=== PATIENT | female | born 1940 | race Caucasian/White ===

== ENCOUNTER 2016-10-24 08:49 | Emergency (ER) | payer MEDICARE, BC ==
[~2016-10-24] VITALS: Ht 172.7 cm; Wt 54.5 kg
[~2016-10-24 08:49] MED LIST: AMIODARONE HCL400 MG PO; ASPI81CT18 PO; ASPIRIN 81M81 MG/TA2 PO; BENICAR 20MG TA20 MG PO; CALCIUM 600/VIT1 CAP; CALCIUM 600600 MG; CALCIUM 600600 MG PO; CALTRATE-600 W600 MG PO; CARAFATE 1GM1 G PO; CEFTIN500 MG PO; CELEXA 20MG20 MG/TAB PO; CELEXA20 MG PO; CENTRUM SILVER1 TA1 PO; CITRACAL + D CA1 TAB PO; COLON HEALTH PO; COREG12.5 MG PO; COUMADIN 1MG1 MG/TAB PO; COUMADIN 22.5 MG/TAB PO; COUMADIN 3MG3 MG/TAB PO; DARVOCET N PO; DUO-KAPS1 CAP PO; FISH OIL1 IU PO; FISH OIL500 MG PO; GENTAMICIN I40 MG/ML; GI COCKTAIL SUSP1 M1 PO; K-LOR CON; KLONOPIN 0.5MG0.5 MG PO; LASIX20 MG PO; LEXAPRO 5MG5 MG PO; LOW DOSE ASPIRI81 MG PO; MAGESTROL; METOPROLOL SUCC25 M1 PO; MIRTAZAPINE7.5 MG PO; MULTI VITAMINS1 TAB; MULTI VITAMINS1 TAB PO; MULTIPLE VITAMI1 CAP PO; MVI; NEXIUM 40MG40 MG PO; NITROSTAT0.4 MG/TAB SL; PRAVACHOL 20MG20 MG PO; PRAVACHOL10 MG PO; PREVACID 15MG15 M1 PO; PRILOTC PO; RIFADIN300 MG PO; ULTRAM 50MG TAB50 MG PO; VANCOMYCIN 11 G/VIA1 IV; VENTOLIN0.09 MG IH; VITAMIN D1000 IU; VITAMIN D1000 IU PO; VITAMIN D5000 IU PO; mvi
[2016-10-24 08:53] VITALS: TEMP 97.9
[2016-10-24 10:06] LABS: BASO % 0.8 % (0.0-2.0); EOS % 0.4 % (0-4.0); GRAN # 3.5 (1.4-6.5); GRAN % 68.7 % (42.2-75.2); HEMATOCRIT 38.5 % (37.0-47.0); HEMOGLOBIN 13.2 g/dl (12.5-16.0); LYMPH # 1.1 (1.2-3.4); LYMPH % 21.9 % (20.0-51.0); MEAN CELL VOLUME 90 fl (80.0-100.0); MEAN CORPUSCULAR HEMOGLOBIN 31 pg (27.0-31.0); MEAN CORPUSCULAR HGB CONC 34 g/dl (33.0-37.0); MONO # 0.4 (0.1-0.6); MONO % 7.8 % (1.7-9.3); PLATELET COUNT 117 K/mm3 (130-400); RED BLOOD COUNT 4.27 M/mm3 (4.10-5.30); REDCELL DISTRIBUTION WIDTH-CV 12.6 % (11.5-14.5); WHITE BLOOD COUNT 5.2 K/mm3 (4.8-10.8)
[2016-10-24 10:19] LABS: ADJUSTED CALCIUM 9.9 mg/dL (8.4-10.2); ALANINE AMINOTRANSFERASE 23 U/L (9-52); ALBUMIN 4.2 gm/dL (3.5-5.0); ALKALINE PHOSPHATASE 34 U/L (50-136); ANION GAP 10 mmol/L (7-16); BILIRUBIN,TOTAL 2.1 mg/dL (0.0-1.0); BLOOD UREA NITROGEN 17 mg/dL (7-17); CALCIUM 10.1 mg/dL (8.4-10.2); CARBON DIOXIDE 25 mmol/L (22-30); CHLORIDE 103 mmol/L (98-107); GLUCOSE 114 mg/dL (74-106); LIPASE 32 U/L (23-300); POTASSIUM 3.9 mmol/L (3.4-5.0); SODIUM 138 mmol/L (137-145); TOTAL PROTEIN 7.2 gm/dL (6.4-8.2)
[2016-10-24 10:21] LABS: C-REACTIVE PROTEIN < 0.5 mg/dL (0.0-0.9)
[2016-10-24 10:25] LABS: B-TYPE NATRIURETIC PEPTIDE 522 pg/mL (0-450)
[2016-10-24 10:30] LABS: TROPONIN-I < 0.012 ng/mL (0.000-0.034)
[2016-10-24 11:09] LABS: INR 2.5 (0.8-3.0); PROTHROMBIN TIME 28.9 SECONDS (9.7-12.8)
[2016-10-24 11:12] LABS: PARTIAL THROMBOPLASTIN TIME 42.2 SECONDS (26.0-37.0)
[2016-10-24] MEDS ORDERED: FLAGYL500 MG PO (12:10)
[2016-10-24 12:19] LABS: PH 8 (5-8); SQUAMOUS EPITHELIAL None Seen /hpf; URINE APPEARANCE Clear; URINE BACTERIA None Seen /hpf; URINE BILIRUBIN Negative (NEGATIVE); URINE BLOOD 1+ (NEGATIVE); URINE COLOR Colorless; URINE GLUCOSE Negative (NEGATIVE); URINE KETONE Negative (NEGATIVE); URINE RBC 0-2 /hpf; URINE UROBILINOGEN Negative (NEGATIVE)
[2016-10-24] MEDS ORDERED: AMOXICILLIN 8751 TAB PO (12:25)
[2016-10-24 13:33] VITALS: BP 139/75; PULSE 70
== END 2016-10-24 13:43 | disposition home or self-care (01) ==
LOC: COL.ER 08:49
PROVIDERS: Emergency Medicine
DX: K52.9 Noninfective gastroenteritis and colitis, unspecified (principal); Z86.79 Personal history of other diseases of the circulatory system; Z79.01 Long term (current) use of anticoagulants; Z95.1 Presence of aortocoronary bypass graft; Z95.4 Presence of other heart-valve replacement; Z90.49 Acquired absence of other specified parts of digestive tract
CPT/HCPCS: J7030; Q9967

== ENCOUNTER 2016-10-31 09:12 | Emergency (ER) | payer MEDICARE, BC ==
[~2016-10-31] VITALS: Ht 170.2 cm; Wt 58.2 kg
[~2016-10-31 09:12] MED LIST changes: +AMOXICILLIN 8751 TAB PO; +FLAGYL500 MG PO
[2016-10-31 09:20] VITALS: BP 109/65; TEMP 98.3
[2016-10-31 12:14] LABS: ADJUSTED CALCIUM 9.6 mg/dL (8.4-10.2); ALBUMIN 4.4 gm/dL (3.5-5.0); BILIRUBIN,TOTAL 1.9 mg/dL (0.0-1.0); CALCIUM 9.9 mg/dL (8.4-10.2); CREATININE, serum 0.82 mg/dL (0.52-1.25); POTASSIUM 3.8 mmol/L (3.4-5.0); TOTAL PROTEIN 7.2 gm/dL (6.4-8.2)
[2016-10-31 12:20] LABS: BASO % 0.6 % (0.0-2.0); EOS % 0.4 % (0-4.0); GRAN # 3.6 (1.4-6.5); GRAN % 69.7 % (42.2-75.2); HEMATOCRIT 38.7 % (37.0-47.0); HEMOGLOBIN 13.3 g/dl (12.5-16.0); LYMPH # 1.1 (1.2-3.4); LYMPH % 20.8 % (20.0-51.0); MEAN CELL VOLUME 90 fl (80.0-100.0); MEAN CORPUSCULAR HEMOGLOBIN 31 pg (27.0-31.0); MEAN CORPUSCULAR HGB CONC 34 g/dl (33.0-37.0); MEAN PLATELET VOLUME 11.2 fl (7.4-10.4); MONO # 0.4 (0.1-0.6); MONO % 8.1 % (1.7-9.3); PLATELET COUNT 136 K/mm3 (130-400); RED BLOOD COUNT 4.31 M/mm3 (4.10-5.30); REDCELL DISTRIBUTION WIDTH-CV 12.7 % (11.5-14.5); WHITE BLOOD COUNT 5.2 K/mm3 (4.8-10.8)
[2016-10-31] MEDS ORDERED: PERCOCET 325 MG1 TA2 PO (14:10)
[2016-10-31 14:30] VITALS: PULSE 85
== END 2016-10-31 14:31 | disposition home or self-care (01) ==
LOC: COL.ER 09:12
PROVIDERS: Physician Assistant Medical
DX: R10.13 Epigastric pain (principal); G89.29 Other chronic pain; L90.5 Scar conditions and fibrosis of skin; I25.10 Atherosclerotic heart disease of native coronary artery without angina pectoris; Z95.1 Presence of aortocoronary bypass graft; Z95.2 Presence of prosthetic heart valve; Z79.01 Long term (current) use of anticoagulants; Z87.891 Personal history of nicotine dependence

== ENCOUNTER 2016-11-18 09:24 | Day surgery (SDC) | payer MEDICARE, BC ==
[~2016-11-18] VITALS: Ht 167.6 cm; Wt 55.8 kg
[~2016-11-18 09:24] MED LIST changes: +PERCOCET 325 MG1 TA2 PO
[2016-11-18 10:19] VITALS: BP 114/82; PULSE 100; TEMP 97.8
[2016-11-18] MEDS ORDERED: CALCIUM CARBON650 M2 PO ×2 (10:35→10:36)
[2016-11-18] MEDS ORDERED: CALCIUM-MAGNES1 EAC1 PO (10:36)
[2016-11-18] MEDS ORDERED: VITAMIN D3400 I1 PO (10:37)
[2016-11-18] MEDS ORDERED: COUMADIN 2MG2 MG/TAB PO (10:47)
[2016-11-18 12:05] VITALS: BP 120/78; PULSE 90; TEMP 97.8
[2016-11-18 12:20] VITALS: BP 120/78; PULSE 75
[2016-11-18 12:37] VITALS: BP 115/67; PULSE 87
[2016-11-18 13:00] VITALS: BP 128/78; PULSE 76
[2016-11-18 13:06] VITALS: BP 94/50; PULSE 64
== END 2016-11-18 13:08 | disposition home or self-care (01) ==
LOC: SDCO 09:24
DX: K22.70 Barrett's esophagus without dysplasia (principal); K57.30 Diverticulosis of large intestine without perforation or abscess without bleeding; K21.9 Gastro-esophageal reflux disease without esophagitis; K30 Functional dyspepsia; R07.89 Other chest pain; I38 Endocarditis, valve unspecified; I10 Essential (primary) hypertension; I25.10 Atherosclerotic heart disease of native coronary artery without angina pectoris; I25.2 Old myocardial infarction; G47.33 Obstructive sleep apnea (adult) (pediatric); F32.9 Major depressive disorder, single episode, unspecified; Z95.0 Presence of cardiac pacemaker; Z95.1 Presence of aortocoronary bypass graft; Z90.49 Acquired absence of other specified parts of digestive tract; Z86.010 Personal history of colon polyps; Z85.3 Personal history of malignant neoplasm of breast
CPT/HCPCS: OP; J2250; J2704; J3010; J7120

== ENCOUNTER → 2016-11-29 | Outpatient (CLI) | payer MEDICARE, BC ==
[~2016-11-29] MED LIST changes: +CALCIUM CARBON650 M2 PO; +CALCIUM-MAGNES1 EAC1 PO; +COUMADIN 2MG2 MG/TAB PO; +NORCO 325 MG-51 TAB PO; +VITAMIN D3400 I1 PO
== END ==
LOC: MHCPAIN 08:00
DX: G89.29 Other chronic pain (principal); M79.1 Myalgia; R10.9 Unspecified abdominal pain; Z87.891 Personal history of nicotine dependence; Z79.01 Long term (current) use of anticoagulants
CPT/HCPCS: G0463

== ENCOUNTER 2016-12-03 16:49 | Emergency (ER) | payer MEDICARE, BC ==
[~2016-12-03] VITALS: Ht 170.2 cm; Wt 54.5 kg
[~2016-12-03 16:49] MED LIST changes: -NORCO 325 MG-51 TAB PO
[2016-12-03 16:51] VITALS: BP 156/85; TEMP 97.9
[2016-12-03] MEDS ORDERED: NORCO 325 MG-51 TAB PO (17:23)
[2016-12-03 17:35] VITALS: PULSE 74
== END 2016-12-03 17:36 | disposition home or self-care (01) ==
LOC: COL.ER 16:49
DX: G89.29 Other chronic pain (principal); R10.30 Lower abdominal pain, unspecified; I25.10 Atherosclerotic heart disease of native coronary artery without angina pectoris; Z85.3 Personal history of malignant neoplasm of breast; Z87.891 Personal history of nicotine dependence; Z79.01 Long term (current) use of anticoagulants; Z95.1 Presence of aortocoronary bypass graft; Z95.0 Presence of cardiac pacemaker; Z95.810 Presence of automatic (implantable) cardiac defibrillator; Z95.4 Presence of other heart-valve replacement; Z98.51 Tubal ligation status

== ENCOUNTER 2017-04-14 13:59 | Emergency (ER) | payer MEDICARE, BC ==
[~2017-04-14] VITALS: Ht 170.2 cm; Wt 63.6 kg
[~2017-04-14 13:59] MED LIST changes: +NORCO 325 MG-51 TAB PO
[2017-04-14 14:04] VITALS: BP 165/105; PULSE 96; TEMP 97.7
[2017-04-14 14:48] LABS: COLLECTION METHOD CLEAN CATCH
[2017-04-14 14:59] LABS: PH 7 (5-8); SQUAMOUS EPITHELIAL None Seen /hpf; URINE APPEARANCE Clear; URINE BACTERIA Rare /hpf; URINE BILIRUBIN Negative (NEGATIVE); URINE BLOOD 2+ (NEGATIVE); URINE COLOR Yellow; URINE GLUCOSE Negative (NEGATIVE); URINE KETONE Negative (NEGATIVE); URINE LEUKOCYTE ESTERASE 2+ (NEGATIVE); URINE NITRATE Negative (NEGATIVE); URINE PROTEIN(semi-quant) Negative (NEGATIVE); URINE RBC 0-2 /hpf; URINE UROBILINOGEN Negative (NEGATIVE)
[2017-04-14 15:02] LABS: TRICYCLIC ANTIDEPRESS URINE NEGATIVE
[2017-04-14 15:21] LABS: BASO % 0.6 % (0.0-2.0); EOS % 0.3 % (0-4.0); GRAN # 4.5 (1.4-6.5); GRAN % 67.9 % (42.2-75.2); HEMATOCRIT 41.8 % (37.0-47.0); HEMOGLOBIN 14.3 g/dl (12.5-16.0); LYMPH # 1.7 (1.2-3.4); LYMPH % 24.8 % (20.0-51.0); MEAN CELL VOLUME 93 fl (80.0-100.0); MEAN CORPUSCULAR HEMOGLOBIN 32 pg (27.0-31.0); MEAN CORPUSCULAR HGB CONC 34 g/dl (33.0-37.0); MEAN PLATELET VOLUME 11.1 fl (7.4-10.4); MONO # 0.4 (0.1-0.6); MONO % 6.1 % (1.7-9.3); PLATELET COUNT 138 K/mm3 (130-400); RED BLOOD COUNT 4.52 M/mm3 (4.10-5.30); REDCELL DISTRIBUTION WIDTH-CV 12.6 % (11.5-14.5)
[2017-04-14 15:30] LABS: ACETAMINOPHEN < 10 ug/mL (10-30); ALANINE AMINOTRANSFERASE 34 U/L (9-52); ALBUMIN 4.8 gm/dL (3.5-5.0); ALCOHOL(ethanol),MEDICAL < 10 mg/dL; ALKALINE PHOSPHATASE 40 U/L (50-136); ANION GAP 9 mmol/L (7-16); AST,SGOT 27 U/L (15-37); BILIRUBIN,TOTAL 1.8 mg/dL (0.0-1.0); BLOOD UREA NITROGEN 19 mg/dL (7-17); CALCIUM 10.7 mg/dL (8.4-10.2); CARBON DIOXIDE 28 mmol/L (22-30); CHLORIDE 103 mmol/L (98-107); GLUCOSE 105 mg/dL (74-106); POTASSIUM 3.9 mmol/L (3.4-5.0); SALICYLATE < 1.0 mg/dL; SODIUM 140 mmol/L (137-145); TOTAL PROTEIN 7.5 gm/dL (6.4-8.2)
[2017-04-14] MEDS ORDERED: EFFEXOR XR75 MG/CAP PO (15:45)
[2017-04-14] MEDS ORDERED: CIPRO 500MG TA500 MG PO (15:45)
== END 2017-04-14 16:16 | disposition home or self-care (01) ==
LOC: COL.ER 13:59
PROVIDERS: Emergency Medicine
DX: F32.9 Major depressive disorder, single episode, unspecified (principal); N39.0 Urinary tract infection, site not specified; I25.10 Atherosclerotic heart disease of native coronary artery without angina pectoris; Z87.891 Personal history of nicotine dependence; Z79.01 Long term (current) use of anticoagulants

== ENCOUNTER 2017-07-12 08:08 | Emergency (ER) | payer MEDICARE, BC ==
[~2017-07-12] VITALS: Ht 170.2 cm; Wt 58.6 kg
[~2017-07-12 08:08] MED LIST changes: +CIPRO 500MG TA500 MG PO; +EFFEXOR XR75 MG/CAP PO
[2017-07-12 08:11] VITALS: BP 140/82; TEMP 97.6
[2017-07-12 08:50] LABS: BASO % 0.2 % (0.0-2.0); EOS % 0.2 % (0-4.0); GRAN # 3.4 (1.4-6.5); GRAN % 67.5 % (42.2-75.2); HEMATOCRIT 40.7 % (37.0-47.0); HEMOGLOBIN 13.9 g/dl (12.5-16.0); LYMPH # 1.2 (1.2-3.4); LYMPH % 23.5 % (20.0-51.0); MEAN CELL VOLUME 92 fl (80.0-100.0); MEAN CORPUSCULAR HEMOGLOBIN 31 pg (27.0-31.0); MEAN CORPUSCULAR HGB CONC 34 g/dl (33.0-37.0); MEAN PLATELET VOLUME 10.8 fl (7.4-10.4); MONO # 0.4 (0.1-0.6); MONO % 8.2 % (1.7-9.3); PLATELET COUNT 114 K/mm3 (130-400); RED BLOOD COUNT 4.43 M/mm3 (4.10-5.30); REDCELL DISTRIBUTION WIDTH-CV 12.6 % (11.5-14.5)
[2017-07-12 08:55] LABS: INR 2.3 (0.8-3.0); PROTHROMBIN TIME 27.1 SECONDS (9.7-12.8)
[2017-07-12 09:00] LABS: ALBUMIN 4.1 gm/dL (3.5-5.0); BILIRUBIN,TOTAL 1.5 mg/dL (0.0-1.0); CREATININE, serum 1.02 mg/dL (0.52-1.25); POTASSIUM 3.9 mmol/L (3.4-5.0)
[2017-07-12 09:10] LABS: COLLECTION METHOD CLEAN CATCH
[2017-07-12 09:20] LABS: BUDDING YEAST Present /hpf; MUCOUS Present /lpf; PH 7 (5-8); SQUAMOUS EPITHELIAL None Seen /hpf; URINE APPEARANCE Cloudy; URINE BACTERIA Many /hpf; URINE BILIRUBIN Negative (NEGATIVE); URINE BLOOD Negative (NEGATIVE); URINE COLOR Yellow; URINE GLUCOSE Negative (NEGATIVE); URINE KETONE Negative (NEGATIVE); URINE LEUKOCYTE ESTERASE 2+ (NEGATIVE); URINE NITRATE Negative (NEGATIVE); URINE PROTEIN(semi-quant) 1+ (NEGATIVE); URINE UROBILINOGEN Negative (NEGATIVE)
[2017-07-12] MEDS ORDERED: CIPRO 500MG TA500 MG PO (09:44)
[2017-07-12] MEDS ORDERED: LIDODERM 5% PATC1 EA TP (09:44)
[2017-07-12 09:59] VITALS: PULSE 82
== END 2017-07-12 10:01 | disposition home or self-care (01) ==
LOC: COL.ER 08:08
PROVIDERS: Physician Assistant
DX: N39.0 Urinary tract infection, site not specified (principal); G89.18 Other acute postprocedural pain; R10.11 Right upper quadrant pain; K21.9 Gastro-esophageal reflux disease without esophagitis; I25.10 Atherosclerotic heart disease of native coronary artery without angina pectoris; F32.9 Major depressive disorder, single episode, unspecified; Z95.4 Presence of other heart-valve replacement; Z79.01 Long term (current) use of anticoagulants

== ENCOUNTER 2017-08-12 13:54 | Emergency (ER) | payer MEDICARE, BC ==
[~2017-08-12] VITALS: Ht 167.6 cm; Wt 59.1 kg
[~2017-08-12 13:54] MED LIST changes: +LIDODERM 5% PATC1 EA TP; +OMNICEF 300MG300 MG PO
[2017-08-12 13:58] VITALS: TEMP 97.7
[2017-08-12] MEDS ORDERED: FISH OIL 1000MG1 CAP PO (15:26)
[2017-08-12 15:43] LABS: COLLECTION METHOD CLEAN CATCH
[2017-08-12 15:57] LABS: PH 6 (5-8); SQUAMOUS EPITHELIAL 0-2 /hpf; URINE APPEARANCE Hazy; URINE BACTERIA Many /hpf; URINE BILIRUBIN Negative (NEGATIVE); URINE BLOOD 2+ (NEGATIVE); URINE COLOR Yellow; URINE GLUCOSE Negative (NEGATIVE); URINE KETONE Negative (NEGATIVE); URINE LEUKOCYTE ESTERASE 3+ (NEGATIVE); URINE NITRATE Negative (NEGATIVE); URINE PROTEIN(semi-quant) Negative (NEGATIVE); URINE UROBILINOGEN Negative (NEGATIVE)
[2017-08-12 16:06] LABS: BASO % 0.1 % (0.0-2.0); EOS % 0.1 % (0-4.0); GRAN # 6.2 (1.4-6.5); HEMOGLOBIN 14.8 g/dl (12.5-16.0); INR 2.2 (0.8-3.0); LYMPH # 1.9 (1.2-3.4); LYMPH % 21.8 % (20.0-51.0); MEAN CELL VOLUME 91 fl (80.0-100.0); MEAN CORPUSCULAR HEMOGLOBIN 31 pg (27.0-31.0); MEAN CORPUSCULAR HGB CONC 34 g/dl (33.0-37.0); MONO # 0.7 (0.1-0.6); MONO % 7.7 % (1.7-9.3); PLATELET COUNT 147 K/mm3 (130-400); PROTHROMBIN TIME 25.4 SECONDS (9.7-12.8); RED BLOOD COUNT 4.74 M/mm3 (4.10-5.30); REDCELL DISTRIBUTION WIDTH-CV 12.8 % (11.5-14.5)
[2017-08-12 16:16] LABS: ALANINE AMINOTRANSFERASE 30 U/L (9-52); ALBUMIN 4.8 gm/dL (3.5-5.0); ALKALINE PHOSPHATASE 49 U/L (50-136); ANION GAP 13 mmol/L (7-16); AST,SGOT 32 U/L (15-37); BILIRUBIN,TOTAL 1.7 mg/dL (0.0-1.0); BLOOD UREA NITROGEN 25 mg/dL (7-17); C-REACTIVE PROTEIN < 0.5 mg/dL (0.0-0.9); CALCIUM 11.3 mg/dL (8.4-10.2); CARBON DIOXIDE 27 mmol/L (22-30); CHLORIDE 101 mmol/L (98-107); CREATININE, serum 1.12 mg/dL (0.52-1.25); GLUCOSE 113 mg/dL (74-106); LIPASE 65 U/L (23-300); POTASSIUM 3.3 mmol/L (3.4-5.0); SODIUM 142 mmol/L (137-145); TOTAL PROTEIN 8.7 gm/dL (6.4-8.2)
[2017-08-12] MEDS ORDERED: LIDODERM 5% PATC1 EA TP (16:56)
[2017-08-12 17:29] VITALS: BP 131/89; PULSE 92
== END 2017-08-12 17:44 | disposition home or self-care (01) ==
LOC: COL.ER 13:54
PROVIDERS: Emergency Medicine
DX: N39.0 Urinary tract infection, site not specified (principal); F32.9 Major depressive disorder, single episode, unspecified; K21.9 Gastro-esophageal reflux disease without esophagitis; I48.91 Unspecified atrial fibrillation; I25.10 Atherosclerotic heart disease of native coronary artery without angina pectoris; Z95.0 Presence of cardiac pacemaker; Z79.01 Long term (current) use of anticoagulants; Z90.49 Acquired absence of other specified parts of digestive tract

== ENCOUNTER 2017-10-21 18:14 | Emergency (ER) | payer MEDICARE, BC ==
[~2017-10-21] VITALS: Ht 170.2 cm; Wt 55.9 kg
[~2017-10-21 18:14] MED LIST changes: +FISH OIL 1000MG1 CAP PO
[2017-10-21 18:16] VITALS: TEMP 97.4
[2017-10-21 19:10] LABS: BASO % 0.6 % (0.0-2.0); EOS % 0.4 % (0-4.0); GRAN # 3.4 (1.4-6.5); HEMOGLOBIN 12.2 g/dl (12.5-16.0); LYMPH # 1.4 (1.2-3.4); MEAN CELL VOLUME 90 fl (80.0-100.0); MEAN CORPUSCULAR HEMOGLOBIN 32 pg (27.0-31.0); MEAN CORPUSCULAR HGB CONC 35 g/dl (33.0-37.0); MEAN PLATELET VOLUME 11.5 fl (7.4-10.4); MONO # 0.4 (0.1-0.6); MONO % 7.8 % (1.7-9.3); PLATELET COUNT 111 K/mm3 (130-400); RED BLOOD COUNT 3.85 M/mm3 (4.10-5.30); REDCELL DISTRIBUTION WIDTH-CV 12.5 % (11.5-14.5)
[2017-10-21 19:13] LABS: INR 2.8 (0.8-3.0); PROTHROMBIN TIME 31.3 SECONDS (9.7-12.8)
[2017-10-21 19:15] LABS: ANION GAP 7 mmol/L (7-16); BLOOD UREA NITROGEN 17 mg/dL (7-17); CALCIUM 9.9 mg/dL (8.4-10.2); CARBON DIOXIDE 26 mmol/L (22-30); CHLORIDE 104 mmol/L (98-107); CREATININE, serum 0.91 mg/dL (0.52-1.25); GLUCOSE 112 mg/dL (74-106); HEMATOCRIT 34.7 % (37.0-47.0); POTASSIUM 3.5 mmol/L (3.4-5.0); SODIUM 137 mmol/L (137-145)
[2017-10-21 19:27] LABS: TROPONIN-I < 0.012 ng/mL (0.000-0.034)
[2017-10-21] MEDS ORDERED: LIDODERM 5% PATC1 EA TP (19:55)
[2017-10-21 20:10] VITALS: BP 160/81; PULSE 75
== END 2017-10-21 20:10 | disposition home or self-care (01) ==
LOC: COL.ER 18:14
PROVIDERS: Emergency Medicine
DX: R07.9 Chest pain, unspecified (principal); Z95.0 Presence of cardiac pacemaker; Z90.12 Acquired absence of left breast and nipple; Z79.01 Long term (current) use of anticoagulants

== ENCOUNTER → 2017-12-01 | Outpatient (CLI) | payer MEDICARE, BC ==
[~2017-12-01] MED LIST changes: +CLEOCIN HC150 MG/CAP PO; +VITAMIN D31000 I1 PO; +[UNRECOGNIZED DRUG - OTHER] PO
== END ==
LOC: BHSO 12:58
DX: F33.1 Major depressive disorder, recurrent, moderate (principal)

== ENCOUNTER 2017-12-17 08:11 | Observation (INO) | payer MEDICARE, BC ==
[~2017-12-17] VITALS: Ht 167.6 cm; Wt 54.1 kg
[2017-12-17] MEDS ORDERED: ZOLOFT 50MG50 MG PO (08:31)
[2017-12-17 08:36] LABS: BASO % 0.4 % (0.0-2.0); EOS % 0.4 % (0-4.0); GRAN # 4.8 (1.4-6.5); GRAN % 68.9 % (42.2-75.2); HEMATOCRIT 41.7 % (37.0-47.0); HEMOGLOBIN 14.3 g/dl (12.5-16.0); LYMPH # 1.6 (1.2-3.4); LYMPH % 22.6 % (20.0-51.0); MEAN CELL VOLUME 91 fl (80.0-100.0); MEAN CORPUSCULAR HEMOGLOBIN 31 pg (27.0-31.0); MEAN CORPUSCULAR HGB CONC 34 g/dl (33.0-37.0); MONO # 0.5 (0.1-0.6); MONO % 7.4 % (1.7-9.3); PLATELET COUNT 141 K/mm3 (130-400); RED BLOOD COUNT 4.58 M/mm3 (4.10-5.30); REDCELL DISTRIBUTION WIDTH-CV 12.6 % (11.5-14.5)
[2017-12-17 08:40] LABS: INR 2.2 (0.8-3.0); PROTHROMBIN TIME 25.4 SECONDS (9.7-12.8)
[2017-12-17 08:45] LABS: ALBUMIN 4.4 gm/dL (3.5-5.0); BILIRUBIN,TOTAL 2.5 mg/dL (0.0-1.0); CREATININE, serum 0.95 mg/dL (0.52-1.25); POTASSIUM 3.5 mmol/L (3.4-5.0); TOTAL PROTEIN 7.4 gm/dL (6.4-8.2)
[2017-12-17 08:56] LABS: TROPONIN-I 0.026 ng/mL (0.000-0.034)
[2017-12-17] MEDS ORDERED: COUMADIN 3MG3 MG/TAB PO (10:08)
[2017-12-17 10:55] VITALS: BP 147/74; PULSE 71; TEMP 97.5
[2017-12-17 15:35] VITALS: BP 145/81; PULSE 70; TEMP 97.9
[2017-12-17 19:33] VITALS: BP 148/81; PULSE 79; TEMP 97.7
[2017-12-17 23:50] VITALS: BP 131/71; PULSE 70; TEMP 98.2
[2017-12-18 03:36] VITALS: BP 119/63; PULSE 72; TEMP 98.3
[2017-12-18 07:28] VITALS: BP 128/68; PULSE 60; TEMP 98.2
[2017-12-18 07:38] LABS: BASO % 0.5 % (0.0-2.0); EOS # 0.1 (0.0-0.7); GRAN # 3.9 (1.4-6.5); GRAN % 64.6 % (42.2-75.2); HEMOGLOBIN 13.9 g/dl (12.5-16.0); LYMPH # 1.6 (1.2-3.4); LYMPH % 26.5 % (20.0-51.0); MEAN CELL VOLUME 89 fl (80.0-100.0); MEAN CORPUSCULAR HEMOGLOBIN 32 pg (27.0-31.0); MEAN CORPUSCULAR HGB CONC 36 g/dl (33.0-37.0); MEAN PLATELET VOLUME 11.9 fl (7.4-10.4); MONO # 0.4 (0.1-0.6); MONO % 7.2 % (1.7-9.3); PLATELET COUNT 134 K/mm3 (130-400); RED BLOOD COUNT 4.37 M/mm3 (4.10-5.30); REDCELL DISTRIBUTION WIDTH-CV 12.6 % (11.5-14.5)
[2017-12-18 07:44] LABS: ALBUMIN 3.7 gm/dL (3.5-5.0); BILIRUBIN,TOTAL 2.1 mg/dL (0.0-1.0); CALCIUM 8.9 mg/dL (8.4-10.2); CREATININE, serum 0.78 mg/dL (0.52-1.25); POTASSIUM 3.7 mmol/L (3.4-5.0); TOTAL PROTEIN 6.4 gm/dL (6.4-8.2)
[2017-12-18 11:38] VITALS: BP 111/65; PULSE 81; TEMP 98.2
[2017-12-18] MEDS ORDERED: LIPITOR20 MG PO (13:32)
[2017-12-18] MEDS ORDERED: LOPRESSOR 225 MG/TAB PO (13:33)
[2017-12-18] MEDS ORDERED: ASPIRIN E.C. 8181 MG PO (13:33)
== END 2017-12-18 14:16 | disposition home or self-care (01) ==
LOC: COL.ER 08:11 → MEDICAL 09:34
PROVIDERS: Emergency Medicine; Student in an Organized Health Care Education/Training Program
DX: R07.9 Chest pain, unspecified (principal); K21.9 Gastro-esophageal reflux disease without esophagitis; I25.10 Atherosclerotic heart disease of native coronary artery without angina pectoris; I50.20 Unspecified systolic (congestive) heart failure; I47.2 Ventricular tachycardia; I48.0 Paroxysmal atrial fibrillation; F32.9 Major depressive disorder, single episode, unspecified; Z95.0 Presence of cardiac pacemaker; Z79.01 Long term (current) use of anticoagulants; Z95.4 Presence of other heart-valve replacement; Z90.49 Acquired absence of other specified parts of digestive tract; Z90.12 Acquired absence of left breast and nipple; Z88.2 Allergy status to sulfonamides; Z88.1 Allergy status to other antibiotic agents; Z87.891 Personal history of nicotine dependence

== ENCOUNTER → 2018-05-21 | Outpatient (CLI) | payer MEDICARE, BC ==
[~2018-05-21] MED LIST changes: +ASPIRIN E.C. 8181 MG PO; +LIPITOR20 MG PO; +LOPRESSOR 225 MG/TAB PO; +ZOLOFT 50MG50 MG PO
== END ==
LOC: BHSO 11:14
DX: F33.41 Major depressive disorder, recurrent, in partial remission (principal)
CPT/HCPCS: G0463

== ENCOUNTER 2018-06-24 10:23 | Emergency (ER) | payer MEDICARE, BC ==
[~2018-06-24] VITALS: Ht 170.2 cm; Wt 54.5 kg
[2018-06-24 10:39] VITALS: TEMP 97.8
[2018-06-24] MEDS ORDERED: ZOLOFT 100MG100 MG PO (11:01)
[2018-06-24] MEDS ORDERED: PAMELOR 25MG25 MG PO (11:02)
[2018-06-24 11:38] LABS: BASO % 0.2 % (0.0-2.0); EOS % 0.1 % (0-4.0); GRAN # 7.6 (1.4-6.5); GRAN % 89.6 % (42.2-75.2); HEMATOCRIT 40.4 % (37.0-47.0); HEMOGLOBIN 13.5 g/dl (12.5-16.0); LYMPH # 0.4 (1.2-3.4); LYMPH % 5.1 % (20.0-51.0); MEAN CELL VOLUME 92 fl (80.0-100.0); MEAN CORPUSCULAR HEMOGLOBIN 31 pg (27.0-31.0); MEAN CORPUSCULAR HGB CONC 33 g/dl (33.0-37.0); MEAN PLATELET VOLUME 11.3 fl (7.4-10.4); MONO # 0.4 (0.1-0.6); MONO % 4.6 % (1.7-9.3); PLATELET COUNT 120 K/mm3 (130-400); RED BLOOD COUNT 4.38 M/mm3 (4.10-5.30); REDCELL DISTRIBUTION WIDTH-CV 13.2 % (11.5-14.5)
[2018-06-24 11:50] LABS: BILIRUBIN,TOTAL 2.4 mg/dL (0.0-1.0); C-REACTIVE PROTEIN 1.9 mg/dL (0.0-0.9); CALCIUM 8.9 mg/dL (8.4-10.2); CREATININE, serum 1.12 mg/dL (0.52-1.25); TOTAL PROTEIN 6.7 gm/dL (6.4-8.2)
[2018-06-24] MEDS ORDERED: ZOFRAN ODT4 MG PO (13:14)
[2018-06-24 13:19] LABS: COLLECTION METHOD CLEAN CATCH
[2018-06-24 13:30] LABS: PH 7 (5-8); SQUAMOUS EPITHELIAL 0-2 /hpf; URINE APPEARANCE Hazy; URINE BACTERIA Moderate /hpf; URINE BILIRUBIN Negative (NEGATIVE); URINE BLOOD 1+ (NEGATIVE); URINE COLOR Yellow; URINE GLUCOSE Negative (NEGATIVE); URINE KETONE Negative (NEGATIVE); URINE LEUKOCYTE ESTERASE 2+ (NEGATIVE); URINE NITRATE Positive (NEGATIVE); URINE PROTEIN(semi-quant) Negative (NEGATIVE); URINE UROBILINOGEN Negative (NEGATIVE)
[2018-06-24] MEDS ORDERED: CIPRO 500MG TA500 MG PO (13:34)
[2018-06-24 13:38] VITALS: BP 112/60; PULSE 84
== END 2018-06-24 13:38 | disposition home or self-care (01) ==
LOC: COL.ER 10:23
PROVIDERS: Family Medicine
DX: K52.9 Noninfective gastroenteritis and colitis, unspecified (principal); I48.91 Unspecified atrial fibrillation; Z79.01 Long term (current) use of anticoagulants; Z95.4 Presence of other heart-valve replacement
CPT/HCPCS: J2405; J7030

== ENCOUNTER 2018-10-08 08:41 | Emergency (ER) | payer MEDICARE, BC ==
[~2018-10-08] VITALS: Ht 170.2 cm; Wt 55.5 kg
[~2018-10-08 08:41] MED LIST changes: +PAMELOR 25MG25 MG PO; +ZOFRAN ODT4 MG PO; +ZOLOFT 100MG100 MG PO
[2018-10-08 09:18] LABS: BASO % 0.5 % (0.0-2.0); EOS % 0.5 % (0-4.0); GRAN # 4.2 (1.4-6.5); GRAN % 71.6 % (42.2-75.2); HEMATOCRIT 40.4 % (37.0-47.0); HEMOGLOBIN 13.7 g/dl (12.5-16.0); LYMPH # 1.1 (1.2-3.4); LYMPH % 19.6 % (20.0-51.0); MEAN CELL VOLUME 89 fl (80.0-100.0); MEAN CORPUSCULAR HEMOGLOBIN 30 pg (27.0-31.0); MEAN CORPUSCULAR HGB CONC 34 g/dl (33.0-37.0); MEAN PLATELET VOLUME 11.6 fl (7.4-10.4); MONO # 0.4 (0.1-0.6); MONO % 7.6 % (1.7-9.3); PLATELET COUNT 136 K/mm3 (130-400); RED BLOOD COUNT 4.52 M/mm3 (4.10-5.30)
[2018-10-08] MEDS ORDERED: PRILOSEC 20MG20 MG PO (09:27)
[2018-10-08 09:31] LABS: ALANINE AMINOTRANSFERASE 17 U/L (9-52); ALBUMIN 4.4 gm/dL (3.5-5.0); ALKALINE PHOSPHATASE 44 U/L (50-136); ANION GAP 9 mmol/L (7-16); AST,SGOT 26 U/L (15-37); BILIRUBIN,TOTAL 1.9 mg/dL (0.0-1.0); BLOOD UREA NITROGEN 14 mg/dL (7-17); CALCIUM 10.5 mg/dL (8.4-10.2); CARBON DIOXIDE 26 mmol/L (22-30); CHLORIDE 107 mmol/L (98-107); CREATININE, serum 0.97 (0.52-1.25); GLUCOSE 118 mg/dL (74-106); LIPASE 60 U/L (23-300); POTASSIUM 3.5 mmol/L (3.4-5.0); SODIUM 142 mmol/L (137-145); TOTAL PROTEIN 7.4 gm/dL (6.4-8.2)
[2018-10-08 09:33] LABS: C-REACTIVE PROTEIN < 0.5 mg/dL (0.0-0.9)
[2018-10-08 09:38] LABS: PROTHROMBIN TIME 11.3 SECONDS (9.7-12.8)
[2018-10-08 10:35] VITALS: BP 103/76; PULSE 78; TEMP 97.5
== END 2018-10-08 10:35 | disposition home or self-care (01) ==
LOC: COL.ER 08:41
PROVIDERS: Emergency Medicine
DX: R10.13 Epigastric pain (principal); Z90.49 Acquired absence of other specified parts of digestive tract; Z98.51 Tubal ligation status; Z95.2 Presence of prosthetic heart valve; Z95.1 Presence of aortocoronary bypass graft; Z87.891 Personal history of nicotine dependence
CPT/HCPCS: C9113; J2270; J2405

== ENCOUNTER → 2018-10-16 | Outpatient (CLI) | payer MEDICARE, BC ==
[~2018-10-16] MED LIST changes: +PRILOSEC 20MG20 MG PO
== END ==
LOC: COL.RAD 09:18
DX: K76.89 Other specified diseases of liver (principal); Z90.49 Acquired absence of other specified parts of digestive tract

== ENCOUNTER 2018-10-22 15:57 | Emergency (ER) | payer MEDICARE, BC ==
[~2018-10-22] VITALS: Ht 170.2 cm; Wt 45.5 kg
[2018-10-22 16:09] VITALS: TEMP 98.5
[2018-10-22 18:37] LABS: COLLECTION METHOD CLEAN CATCH
[2018-10-22 18:43] LABS: BASO % 0.5 % (0.0-2.0); EOS # 0.1 (0.0-0.7); GRAN % 67.8 % (42.2-75.2); HEMATOCRIT 37.9 % (37.0-47.0); HEMOGLOBIN 12.7 g/dl (12.5-16.0); LYMPH # 1.3 (1.2-3.4); LYMPH % 22.4 % (20.0-51.0); MEAN CELL VOLUME 91 fl (80.0-100.0); MEAN CORPUSCULAR HEMOGLOBIN 30 pg (27.0-31.0); MEAN CORPUSCULAR HGB CONC 34 g/dl (33.0-37.0); MEAN PLATELET VOLUME 11.4 fl (7.4-10.4); MONO # 0.5 (0.1-0.6); PLATELET COUNT 112 K/mm3 (130-400); RED BLOOD COUNT 4.18 M/mm3 (4.10-5.30); REDCELL DISTRIBUTION WIDTH-CV 13.4 % (11.5-14.5)
[2018-10-22 18:47] LABS: MUCOUS Present /lpf; PH 6 (5-8); SQUAMOUS EPITHELIAL 0-2 /hpf; URINE APPEARANCE Cloudy; URINE BACTERIA Rare /hpf; URINE BILIRUBIN Negative (NEGATIVE); URINE BLOOD 1+ (NEGATIVE); URINE CALCIUM OXALATE CRYSTAL Present /hpf; URINE COLOR Yellow; URINE GLUCOSE Negative (NEGATIVE); URINE KETONE Negative (NEGATIVE); URINE LEUKOCYTE ESTERASE 3+ (NEGATIVE); URINE NITRATE Positive (NEGATIVE); URINE PROTEIN(semi-quant) Negative (NEGATIVE); URINE UROBILINOGEN Negative (NEGATIVE)
[2018-10-22 19:02] LABS: ALANINE AMINOTRANSFERASE 20 U/L (9-52); ALBUMIN 4.1 gm/dL (3.5-5.0); ALKALINE PHOSPHATASE 39 U/L (50-136); ANION GAP 8 mmol/L (7-16); AST,SGOT 23 U/L (15-37); BILIRUBIN,TOTAL 0.8 mg/dL (0.0-1.0); BLOOD UREA NITROGEN 18 mg/dL (7-17); CALCIUM 9.9 mg/dL (8.4-10.2); CARBON DIOXIDE 28 mmol/L (22-30); CHLORIDE 105 mmol/L (98-107); CREATININE, serum 0.83 (0.52-1.25); GLUCOSE 93 mg/dL (74-106); LIPASE 24 U/L (23-300); POTASSIUM 3.7 mmol/L (3.4-5.0); SODIUM 141 mmol/L (137-145); TOTAL PROTEIN 6.8 gm/dL (6.4-8.2)
[2018-10-22 19:04] LABS: C-REACTIVE PROTEIN < 0.5 mg/dL (0.0-0.9)
[2018-10-22] MEDS ORDERED: CIPRO 500MG TA500 MG PO ×2 (19:23→19:24)
[2018-10-22 20:23] VITALS: BP 121/61; PULSE 81
== END 2018-10-22 20:23 | disposition home or self-care (01) ==
LOC: COL.ER 15:57
PROVIDERS: Physician Assistant
DX: N39.0 Urinary tract infection, site not specified (principal); G89.29 Other chronic pain; R10.11 Right upper quadrant pain; Z98.51 Tubal ligation status; Z90.49 Acquired absence of other specified parts of digestive tract
CPT/HCPCS: J2270

== ENCOUNTER → 2018-11-09 | Outpatient (CLI) | payer MEDICARE, BC | LOC: BHSO 10:59 | DX: F33.41 Major depressive disorder, recurrent, in partial remission (principal) | CPT/HCPCS: G0463 ==

== ENCOUNTER → 2019-02-07 | Outpatient (CLI) | payer MEDICARE, BC | LOC: BHSO 11:00 | DX: F33.0 Major depressive disorder, recurrent, mild (principal) | CPT/HCPCS: G0463 ==

== ENCOUNTER 2019-05-31 11:12 | Emergency (ER) | payer MEDICARE, BC ==
[~2019-05-31] VITALS: Ht 170.2 cm; Wt 45.5 kg
[2019-05-31 11:21] VITALS: TEMP 98.6
[2019-05-31 11:58] LABS: BASO % 0.5 % (0.0-2.0); EOS % 0.2 % (0-4.0); GRAN # 4.5 (1.4-6.5); GRAN % 74.5 % (42.2-75.2); HEMATOCRIT 40.7 % (37.0-47.0); HEMOGLOBIN 13.8 g/dl (12.5-16.0); LYMPH % 17.2 % (20.0-51.0); MEAN CELL VOLUME 93 fl (80.0-100.0); MEAN CORPUSCULAR HEMOGLOBIN 32 pg (27.0-31.0); MEAN CORPUSCULAR HGB CONC 34 g/dl (33.0-37.0); MEAN PLATELET VOLUME 12.3 fl (7.4-10.4); MONO # 0.4 (0.1-0.6); MONO % 7.3 % (1.7-9.3); PLATELET COUNT 123 K/mm3 (130-400); RED BLOOD COUNT 4.38 M/mm3 (4.10-5.30); REDCELL DISTRIBUTION WIDTH-CV 13.1 % (11.5-14.5)
[2019-05-31 12:06] LABS: PROTHROMBIN TIME 11.5 SECONDS (9.7-12.8)
[2019-05-31 12:08] LABS: ALANINE AMINOTRANSFERASE 22 U/L (9-52); ALBUMIN 4.6 gm/dL (3.5-5.0); ALKALINE PHOSPHATASE 46 U/L (50-136); ANION GAP 8 mmol/L (7-16); AST,SGOT 30 U/L (15-37); BILIRUBIN,TOTAL 1.6 mg/dL (0.0-1.0); BLOOD UREA NITROGEN 21 mg/dL (7-17); CARBON DIOXIDE 26 mmol/L (22-30); CHLORIDE 106 mmol/L (98-107); CREATININE, serum 1.11 (0.52-1.25); GLUCOSE 123 mg/dL (74-106); LIPASE 88 U/L (23-300); PARTIAL THROMBOPLASTIN TIME 25.2 SECONDS (26.0-37.0); POTASSIUM 4.2 mmol/L (3.4-5.0); SODIUM 141 mmol/L (137-145); TOTAL PROTEIN 7.4 gm/dL (6.4-8.2)
[2019-05-31 12:20] LABS: TROPONIN-I < 0.012 ng/mL (0.000-0.035)
[2019-05-31] MEDS ORDERED: PRILOSEC 20MG20 MG PO (12:32)
[2019-05-31 13:22] VITALS: BP 98/68; PULSE 86
== END 2019-05-31 12:50 | disposition home or self-care (01) ==
LOC: COL.ER 11:12
PROVIDERS: Physician Assistant
DX: R10.13 Epigastric pain (principal); Z87.891 Personal history of nicotine dependence; Z90.89 Acquired absence of other organs; Z95.1 Presence of aortocoronary bypass graft

== ENCOUNTER 2019-08-09 08:48 | Inpatient (IN) | payer MEDICARE, BC ==
[~2019-08-09] VITALS: Ht 172.7 cm; Wt 57.9 kg
[2019-08-09 09:49] LABS: BASO # 0.1 (0.0-0.2); BASO % 0.4 % (0.0-2.0); EOS # 0.1 (0.0-0.7); EOS % 0.8 % (0-4.0); GRAN # 14.3 (1.4-6.5); GRAN % 88.8 % (42.2-75.2); HEMATOCRIT 38.2 % (37.0-47.0); HEMOGLOBIN 12.9 g/dl (12.5-16.0); LYMPH # 0.5 (1.2-3.4); MEAN CELL VOLUME 91 fl (80.0-100.0); MEAN CORPUSCULAR HEMOGLOBIN 31 pg (27.0-31.0); MEAN CORPUSCULAR HGB CONC 34 g/dl (33.0-37.0); MEAN PLATELET VOLUME 12.6 fl (7.4-10.4); MONO # 0.6 (0.1-0.6); MONO % 3.5 % (1.7-9.3); PLATELET COUNT 86 K/mm3 (130-400); RED BLOOD COUNT 4.19 M/mm3 (4.10-5.30); REDCELL DISTRIBUTION WIDTH-CV 13.9 % (11.5-14.5)
[2019-08-09 09:51] LABS: INR 1.1 (0.8-3.0); PROTHROMBIN TIME 12.6 SECONDS (9.7-12.8)
[2019-08-09 09:56] LABS: ALBUMIN 4.1 gm/dL (3.5-5.0); BILIRUBIN,TOTAL 3.3 mg/dL (0.0-1.0); CALCIUM 10.1 mg/dL (8.4-10.2); CREATININE, serum 1.73 (0.52-1.25); POTASSIUM 3.7 mmol/L (3.4-5.0)
[2019-08-09 09:57] LABS: COLLECTION METHOD CATHETER
[2019-08-09 10:07] LABS: TROPONIN-I 0.012 ng/mL (0.000-0.035)
[2019-08-09] MEDS ORDERED: CALCIUM CARBON650 M2 (10:12)
[2019-08-09] MEDS ORDERED: VITAMIN B12 781 TAB PO (10:15)
[2019-08-09] MEDS ORDERED: NAMENDA PO (10:15)
[2019-08-09] MEDS ORDERED: ASPIRIN 81M81 MG/TA2 PO (10:15)
[2019-08-09 10:18] LABS: BUDDING YEAST Present /hpf; MUCOUS Present /lpf; PH 5 (5-8); SQUAMOUS EPITHELIAL None Seen /hpf; URINE APPEARANCE Cloudy; URINE BACTERIA Many /hpf; URINE BILIRUBIN Negative (NEGATIVE); URINE BLOOD 3+ (NEGATIVE); URINE COLOR Yellow; URINE GLUCOSE Negative (NEGATIVE); URINE KETONE Negative (NEGATIVE); URINE LEUKOCYTE ESTERASE 3+ (NEGATIVE); URINE NITRATE Negative (NEGATIVE); URINE PROTEIN(semi-quant) 2+ (NEGATIVE); URINE RBC 20-50 /hpf; URINE UROBILINOGEN Negative (NEGATIVE)
[2019-08-09 12:34] VITALS: BP 133/66; PULSE 82; TEMP 98.5
[2019-08-09 12:35] VITALS: BP 133/66; PULSE 82; TEMP 98.5
--- NOTE | 2019-08-09 17:32 | NUR ---
CALLED PT DAUGHTER, MARCIA, TO ASSESS WHETHER PT HAS HAD ANY EXPOSURE TO COVID. PT STATES SHE HAS BEEN TO THE DOCTOR BUT THAT HAS BEEN HER ONLY VENTURE OUTSIDE OF THE HOME FOR A FEW MONTHS. SHE STATES THAT THE PT DRINKS 2 ENSURES PER DAY AT HOME. THE DAUGHTER BRINGS IN ALL THE GROCERIES FOR HER PARENTS.
[2019-08-09 18:03] VITALS: BP 120/59; PULSE 90; TEMP 101.2
--- NOTE | 2019-08-09 18:19 | NUR ---
INFORMED PT RUNNING FEVER OF 101.4. TELETYPESETTER MONITOR NOTIFIED ALONG WITH INA FRANCES. PT HAS DRY COUGH AND ABD PAIN. PT SPEECH IS HARD TO UNDERSTAND, PT IS AOX4 BUT SPEECH IS NOT RELEVANT TO QUESTIONS ASKED. EXTREMELY HARD OF HEARING, PT VERY DROWSY, FALLS ASLEEP WHILE TALKING TO HER. PT ON FLUIDS. PORTABLE CHEST XRAY ORDERED. BED IN LOW POSITION, CALL LIGHT IN PLACE, FALL GOWN ON, FALL SOCKS ON, SCD'S ON.
--- NOTE | 2019-08-09 20:00 | NUR ---
Received report from ANIVAL Madden. Alert and oriented with occasional confused speech. Fluids currently infusing to RFA, intact, dressing CDI. Denies any pain or discomfort at this time. Tele monitor in place, leads checked. SCD in place to BLE. Meds administered. Needs met at this time. Call light within reach.
[2019-08-09 20:07] VITALS: BP 105/76; PULSE 85; TEMP 99.7
[2019-08-10 00:11] VITALS: BP 118/61; PULSE 81; TEMP 100.2
[2019-08-10 04:35] VITALS: BP 111/51; PULSE 66; TEMP 99.1
--- NOTE | 2019-08-10 06:39 | NUR ---
Pt made no complaints. Assisted pt to BR using walker. Meds administered. Call light within reach.
--- NOTE | 2019-08-10 07:00 | NUR ---
Report given to ANIVAL Madden.
[2019-08-10 07:36] LABS: BASO % 0.4 % (0.0-2.0); EOS % 0.1 % (0-4.0); GRAN # 8.2 (1.4-6.5); GRAN % 86.8 % (42.2-75.2); HEMOGLOBIN 11.7 g/dl (12.5-16.0); LYMPH # 0.5 (1.2-3.4); LYMPH % 5.5 % (20.0-51.0); MEAN CELL VOLUME 94 fl (80.0-100.0); MEAN CORPUSCULAR HEMOGLOBIN 31 pg (27.0-31.0); MEAN CORPUSCULAR HGB CONC 33 g/dl (33.0-37.0); MEAN PLATELET VOLUME 12.7 fl (7.4-10.4); MONO # 0.6 (0.1-0.6); MONO % 6.4 % (1.7-9.3); PLATELET COUNT 82 K/mm3 (130-400); RED BLOOD COUNT 3.76 M/mm3 (4.10-5.30); REDCELL DISTRIBUTION WIDTH-CV 14.1 % (11.5-14.5)
[2019-08-10 07:39] LABS: HEMATOCRIT 35.3 % (37.0-47.0)
[2019-08-10 07:47] LABS: ALBUMIN 3.1 gm/dL (3.5-5.0); CALCIUM 8.7 mg/dL (8.4-10.2); CREATININE, serum 1.24 (0.52-1.25); POTASSIUM 3.6 mmol/L (3.4-5.0); TOTAL PROTEIN 5.8 gm/dL (6.4-8.2)
[2019-08-10 08:44] VITALS: BP 117/59; PULSE 69; TEMP 97.7
--- NOTE | 2019-08-10 11:11 | NUR ---
PT IN BED SLEEPING, PT KNOWS WHERE SHE IS, WHO SHE IS, THE CURRENT YEAR AND PRESIDENT. SOME OF HER RESPONSES ARE INNAPROPRIATE, SHE SOMETIMES TRAILS OFF IN THE MIDDLE OF SENTENCES. PT NOT STEADY GETTING UP TO BEDSIDE COMMODE TODAY. FLUIDS WERE DEC TO 75ML/HR BY PA ORDER. MULTIPLE PROMPTS REQUIRED TO TAKE PILLS. NO OTHER NEEDS AT THIS TIME.
[2019-08-10 11:51] VITALS: BP 110/52; PULSE 75; TEMP 98
--- NOTE | 2019-08-10 15:04 | NUR ---
PT'S HEARING AIDS BROUGHT IN ALONG WITH PHONE RESIDENCY PROGRAM COORDINATOR AND EXTRA HEARING AID BATTERIES. PLACED ON PT BEDSIDE TABLE.
[2019-08-10 15:53] VITALS: BP 132/63; PULSE 77; TEMP 99.3
--- NOTE | 2019-08-10 16:59 | NUR ---
PT CONSUMED A YOGURT, ICE CREAM CUP, AND DRANK A CLEAR CUP OF TEA. THIS IS THE MOST THE PT HAS CONSUMED IN THE PAST TWO DAYS.
--- NOTE | 2019-08-10 17:00 | NUR ---
PT COMPLAINING OF INTERMITTANT SIDE PAIN, SHE STATES IT ISN'T EXTREMELY PAINFUL "MORE ANNOYING".
--- NOTE | 2019-08-10 20:00 | NUR ---
Received report from ANIVAL Madden. Alert and oriented x4. [place]. Has hearing aides at bedside. Denies any pain or discomfort at this time. Denies abdominal pain, BS+x4. Meds administered. IV intact with fluids currently infusin, dressing CDI. Tele monitor in place, leads checked. Needs met at this time. Personal items at bedside table. Call light within reach.
[2019-08-10 20:09] VITALS: BP 99/58; PULSE 70; TEMP 98.5
[2019-08-11] VITALS (7 sets, daily range): BP systolic 118–144; BP diastolic 25–79; PULSE 64–72; TEMP 97.8–99.1
--- NOTE | 2019-08-11 02:41 | NUR ---
Has x1 episode loose stool in bed. Pt cleaned up, placed on briefs. No redness to sacral observed. Needs met at this time. Stools sample collected and sent to lab. Call light within reach.
[2019-08-11 06:40] LABS: BASO # 0.1 (0.0-0.2); BASO % 0.7 % (0.0-2.0); EOS # 0.1 (0.0-0.7); EOS % 0.8 % (0-4.0); GRAN # 5.8 (1.4-6.5); GRAN % 76.6 % (42.2-75.2); HEMOGLOBIN 11.2 g/dl (12.5-16.0); LYMPH # 0.8 (1.2-3.4); MEAN CELL VOLUME 92 fl (80.0-100.0); MEAN CORPUSCULAR HEMOGLOBIN 30 pg (27.0-31.0); MEAN CORPUSCULAR HGB CONC 33 g/dl (33.0-37.0); MEAN PLATELET VOLUME 12.7 fl (7.4-10.4); MONO # 0.7 (0.1-0.6); MONO % 9.8 % (1.7-9.3); PLATELET COUNT 91 K/mm3 (130-400); RED BLOOD COUNT 3.69 M/mm3 (4.10-5.30); REDCELL DISTRIBUTION WIDTH-CV 13.9 % (11.5-14.5)
[2019-08-11 06:42] LABS: ALBUMIN 2.9 gm/dL (3.5-5.0); BILIRUBIN,TOTAL 1.1 mg/dL (0.0-1.0); CALCIUM 8.6 mg/dL (8.4-10.2); CREATININE, serum 0.92 (0.52-1.25); POTASSIUM 3.5 mmol/L (3.4-5.0); TOTAL PROTEIN 5.5 gm/dL (6.4-8.2)
--- NOTE | 2019-08-11 07:06 | NUR ---
Report given to ANIVAL Madden.
--- NOTE | 2019-08-11 09:13 | NUR ---
PT IN BED SLEEPING UPON ENTRY, PT COMPLAINING ON NAUSEA AND ABD PAIN. PT APPEARS DROWSY, DID NOT EAT BREAKFAST BUT ASKED FOR A VANILLA ENSURE. FLUIDS RUNNING, MEDS GIVEN. BED IN LOW POSITION, PT BOOSTED IN BED, NO OTHER NEEDS AT THIS TIME.
--- NOTE | 2019-08-11 11:22 | NUR ---
PT SHEETS CHANGED. PT CLEANED WITH WIPES. PT UN ABLE TO CLEAN HERSELF. PT MAX 2 ASSIST FOR TRANSFER. PT UNSTEADY ON HER FEET. BELIEVED SHE WOULD BENEFIT FROM A WALKER. BENTYL GIVEN FOR ABD PAIN, PT STATED THAT HER NAUSEA HAS DECREASED. PT HEARING AIDS IN PT. ORAL CARE PROVIDED, DENTURES CLEANED. PT PERFORMED ORAL CARE ON HERSELF. PERICARE PROVIDED. PT CONTINENT OF URINE, SOMETIMES INCONTINENT OF STOOL.
--- NOTE | 2019-08-11 15:09 | NUR ---
SW spoke with nurse for update of patients status. Sw contacted patient via telephone to complete intake. Patient currently resides in [facility], with her Braulio [phone], and daughter Jewels [phone] as EMR and care support. Patient did indicated that her has hip problems and so he is not able to assist as much. Patient indicated that she has her listed on her DPOA, and that her PCP is Dr. Geiger, she is not sure if she has upcoming appointments. Patient reports that she gets her medications from [facility] with no concerns. Patient reports that her should be contacted in regards to any HHS she may need. Plan: SW will continue to follow.
--- NOTE | 2019-08-11 17:17 | NUR ---
PT STATES SHE FEELS BETTER THAN SHE DID EARLIER. PT DRANK 2 ENSURES, CURRENTLY DRINKING HER THIRD. PT CONTINENT OF BOWEL AND BLADDER. 2 ASSIST TO COMMODE. PT REPORTS FEELING WEAK. NO OTHER NEEDS AT THIS TIME.
--- NOTE | 2019-08-11 20:45 | NUR ---
Received report from ANIVAL Madden. Alert and oriented. Has occaional confused speech. Denies any pain, nausea or other discomfort at this time. Meds infusing to RFA IV, dressing CDI. Tele monitor in place, leads checked. Meds administered. Needs met at this time. Call light within reach.
[2019-08-12 02:56] VITALS: BP 138/63; PULSE 66; TEMP 98.3
--- NOTE | 2019-08-12 05:41 | NUR ---
Pt made no complaints during the night. Meds administered. Call light within reach.
--- NOTE | 2019-08-12 07:05 | NUR ---
Report given to ANIVAL Choi.
[2019-08-12 07:15] LABS: HEMOGLOBIN 11.4 g/dl (12.5-16.0); MEAN CELL VOLUME 92 fl (80.0-100.0); MEAN CORPUSCULAR HEMOGLOBIN 30 pg (27.0-31.0); MEAN CORPUSCULAR HGB CONC 33 g/dl (33.0-37.0); MEAN PLATELET VOLUME 12.6 fl (7.4-10.4); PLATELET COUNT 104 K/mm3 (130-400); RED BLOOD COUNT 3.75 M/mm3 (4.10-5.30); REDCELL DISTRIBUTION WIDTH-CV 13.7 % (11.5-14.5)
[2019-08-12 07:20] LABS: HEMATOCRIT 34.5 % (37.0-47.0)
[2019-08-12 07:33] LABS: ALBUMIN 2.9 gm/dL (3.5-5.0); CALCIUM 9.1 mg/dL (8.4-10.2); CREATININE, serum 0.82 (0.52-1.25); POTASSIUM 3.6 mmol/L (3.4-5.0); TOTAL PROTEIN 5.6 gm/dL (6.4-8.2)
[2019-08-12 07:53] VITALS: BP 126/58; PULSE 67; TEMP 97.5
[2019-08-12 09:08] LABS: BAND 20 % (0-10); LYMPHOCYTE 12 % (20.0-51.0); NEUTROPHILS 60 % (42.0-75.2); PLATELET ESTIMATE DECREASED (NORMAL)
--- NOTE | 2019-08-12 10:32 | NUR ---
Patient is awake and alert in recliner. Is hard of hearing. Did not eat much breakfast, requested vanilla ensure. States she is still having stomach pain, no nausea, stated she feels like it was from the scar tissue. I did offer to administer pain medicaiton and she declined. She did drink some sprite with breakfast and also asked for another after. Fresh ice water was also provided.
[2019-08-12 12:06] VITALS: BP 112/72; PULSE 66; TEMP 98.1
[2019-08-12] MEDS ORDERED: DIFLUCAN 100MG100 MG PO (14:41)
[2019-08-12] MEDS ORDERED: BENTYL 10MG10 MG/CAP PO (14:41)
[2019-08-12] MEDS ORDERED: OMNICEF 300MG300 MG PO (14:41)
--- NOTE | 2019-08-12 15:43 | NUR ---
Patient Service Rep attended clinical rounds with the team and patient to discharge home today with Home Health. ARIEL provided [email or web address] list of HH agencies and patient selected [facility]. ARIEL faxed referral and was advised by Elizabeth at [facility] that they can accept referral. ARIEL then faxed discharge orders. ARIEL contacted patient's daughter, Jewels to provide update. Jewels to fruit picker patient around 1730 tonight. ARIEL contacted patient's , Deng to provide update. Deng is agreeable to discharge plan. ARIEL read IM form aloud to Deng who verbalized understanding then provided verbal consent as patient's DPOA. ARIEL placed form in chart. No additional needs at this time.
[2019-08-12 16:01] VITALS: BP 144/79; PULSE 65; TEMP 98.1
--- NOTE | 2019-08-12 19:00 | NUR ---
Patient discharged home at 1750. Was assisted to private vehicle via wheelchair accompanied by staff. All belongings sent with patient. Daughter picked patient up at ER entrance.
== END 2019-08-12 17:50 | disposition home health service (06) | DRG 872 ==
LOC: COL.ER 08:48 → MEDICAL 11:20
PROVIDERS: Emergency Medicine; Physician Assistant; ADMIT Family Medicine
DX: A41.51 Sepsis due to Escherichia coli [E. coli] (principal); N39.0 Urinary tract infection, site not specified; N17.9 Acute kidney failure, unspecified; K92.1 Melena; I50.22 Chronic systolic (congestive) heart failure; D69.6 Thrombocytopenia, unspecified; R65.20 Severe sepsis without septic shock; E86.0 Dehydration; Z88.1 Allergy status to other antibiotic agents; R94.31 Abnormal electrocardiogram [ECG] [EKG]; Z91.81 History of falling; R74.8 Abnormal levels of other serum enzymes; I25.10 Atherosclerotic heart disease of native coronary artery without angina pectoris; Z95.1 Presence of aortocoronary bypass graft; I48.91 Unspecified atrial fibrillation; Z95.3 Presence of xenogenic heart valve; Z85.3 Personal history of malignant neoplasm of breast; K21.9 Gastro-esophageal reflux disease without esophagitis; F32.9 Major depressive disorder, single episode, unspecified; F03.90 Unspecified dementia, unspecified severity, without behavioral disturbance, psychotic disturbance, mood disturbance, and anxiety; Z88.2 Allergy status to sulfonamides; Z88.8 Allergy status to other drugs, medicaments and biological substances
CPT/HCPCS: 99222-AI; 99232-AI; 99239; J0744; J1650; J2405; J2543; J7030

== ENCOUNTER 2020-03-27 23:04 | Emergency (ER) | payer MEDICARE, BC ==
[~2020-03-27] VITALS: Wt 51.7 kg
[~2020-03-27 23:04] MED LIST changes: +BENTYL 10MG10 MG/CAP PO; +CALCIUM CARBON650 M2; +DIFLUCAN 100MG100 MG PO; +NAMENDA PO; +VITAMIN B12 781 TAB PO
[2020-03-27 23:07] VITALS: TEMP 98.2
[2020-03-27 23:31] LABS: HEMATOCRIT 41.9 % (37.0-47.0); HEMOGLOBIN 13.7 g/dl (12.5-16.0); MEAN CELL VOLUME 93 fl (80.0-100.0); MEAN CORPUSCULAR HEMOGLOBIN 31 pg (27.0-31.0); MEAN CORPUSCULAR HGB CONC 33 g/dl (33.0-37.0); MEAN PLATELET VOLUME 10.2 fl (7.4-10.4); PLATELET COUNT 83 K/mm3 (130-400); RED BLOOD COUNT 4.49 M/mm3 (4.10-5.30); REDCELL DISTRIBUTION WIDTH-CV 13.6 % (11.5-14.5)
[2020-03-27 23:45] LABS: BILIRUBIN,TOTAL 3.2 mg/dL (0.0-1.0); CALCIUM 9.5 mg/dL (8.4-10.2); CREATININE, serum 1.49 (0.52-1.25); POTASSIUM 3.4 mmol/L (3.4-5.0); TOTAL PROTEIN 6.7 gm/dL (6.4-8.2)
[2020-03-27 23:47] LABS: INR 1.4 (0.8-3.0); PROTHROMBIN TIME 15.5 SECONDS (9.7-12.8)
[2020-03-27 23:49] LABS: PARTIAL THROMBOPLASTIN TIME 48.5 SECONDS (26.0-37.0)
[2020-03-28 00:02] LABS: TROPONIN-I 0.067 ng/mL (0.000-0.035)
[2020-03-28 00:29] LABS: BAND 25 % (0-10); LYMPHOCYTE 11 % (20.0-51.0); METAMYELOCYTE 3 % (0-0); NEUTROPHILS 59 % (42.0-75.2); PLATELET ESTIMATE DECREASED (NORMAL)
[2020-03-28 00:32] LABS: OVALOCYTES 1+
[2020-03-28 01:14] LABS: COLLECTION METHOD CATHETER
[2020-03-28 01:23] LABS: MUCOUS Present /lpf; PH 5 (5-8); SQUAMOUS EPITHELIAL 0-2 /hpf; URINE APPEARANCE Cloudy; URINE BACTERIA Rare /hpf; URINE BILIRUBIN Negative (NEGATIVE); URINE BLOOD 1+ (NEGATIVE); URINE COLOR Yellow; URINE GLUCOSE Negative (NEGATIVE); URINE KETONE Negative (NEGATIVE); URINE LEUKOCYTE ESTERASE 2+ (NEGATIVE); URINE NITRATE Negative (NEGATIVE); URINE PROTEIN(semi-quant) 2+ (NEGATIVE); URINE UROBILINOGEN Negative (NEGATIVE); URINE WBC >50 /hpf
[2020-03-28 03:15] VITALS: BP 89/49; PULSE 90
== END 2020-03-28 03:15 | disposition short-term general hospital (02) ==
LOC: COL.ER 23:04
PROVIDERS: Family Medicine
DX: N39.0 Urinary tract infection, site not specified (principal); R03.1 Nonspecific low blood-pressure reading; R74.02 Elevation of levels of lactic acid dehydrogenase [LDH]; I25.10 Atherosclerotic heart disease of native coronary artery without angina pectoris; K21.9 Gastro-esophageal reflux disease without esophagitis; F32.9 Major depressive disorder, single episode, unspecified; F03.90 Unspecified dementia, unspecified severity, without behavioral disturbance, psychotic disturbance, mood disturbance, and anxiety; Z88.2 Allergy status to sulfonamides; Z95.9 Presence of cardiac and vascular implant and graft, unspecified; Z88.8 Allergy status to other drugs, medicaments and biological substances; Z88.1 Allergy status to other antibiotic agents; Z79.82 Long term (current) use of aspirin
CPT/HCPCS: J1650; J1956; J7030; J7040; J7060